=== PATIENT | female | born 1965 | race Caucasian/White ===

== ENCOUNTER 2025-04-06 12:23 | Outpatient (CLI) | payer BC, SELFPAY | END 2025-04-06 12:24 | disposition home or self-care (01) | LOC: NFLDREF 04-10 12:52 | PROVIDERS: PCP Family Medicine; Referring Provider Family Medicine | DX: R39.9 Unspecified symptoms and signs involving the genitourinary system (principal); R31.9 Hematuria, unspecified; R35.0 Frequency of micturition | CPT/HCPCS: 87086 ==